=== PATIENT | male | born 1970 | race African-American/Black ===

== ENCOUNTER 2023-08-27 23:25 | Emergency (ER) | payer OTHER ==
[2023-08-27 23:29] VITALS: TEMP 98.5
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
[2023-08-27] MEDS: IBUPROFEN 600 MG TAB PO STA (23:58)
[2023-08-28 02:52] VITALS: BP 123/87; PULSE 82; RESP 16
--- NOTE | 2023-08-28 03:14 | XR ---
EXAM: XR Bilateral Hands Complete, 3 or More Views CLINICAL HISTORY: ITS.REASON XR Reason: injury TECHNIQUE: Frontal, lateral and oblique views of the bilateral hands. COMPARISON: No relevant prior studies available. FINDINGS: Bones/joints: Healing fracture of the left fifth metacarpal distal diaphysis, with bridging osseous bone. Posttraumatic deformity of the right second MCP with multiple radiopaque densities, correlate with surgical history. No acute fracture or subluxation. Soft tissues: Unremarkable. No radiopaque foreign body. IMPRESSION: 1. Healing fracture of the left fifth metacarpal distal diaphysis, with bridging osseous bone. 2. Posttraumatic deformity of the right second MCP with multiple radiopaque densities, correlate with surgical history.
== END 2023-08-28 02:49 | disposition home or self-care (01) ==
LOC: EC 23:25
DX: S63.616A Unspecified sprain of right little finger, initial encounter (principal); F10.20 Alcohol dependence, uncomplicated; F17.200 Nicotine dependence, unspecified, uncomplicated; Y09 Assault by unspecified means
CPT/HCPCS: 99283